=== PATIENT | male | born 1970 | race Caucasian/White ===

== ENCOUNTER 2017-12-08 12:08 | Day surgery (SDC) | payer OTHER | END 2017-12-08 16:30 | disposition home or self-care (01) | LOC: JASU-SURG 12:08 | PROC: 0TF3XZZ Fragmentation in Right Kidney Pelvis, External Approach (ICD-10-PCS; principal; 2017-12-08) | DX: N20.0 Calculus of kidney (principal) ==

== ENCOUNTER 2018-11-03 10:11 | Emergency (ER) | payer OTHER ==
[2018-11-03 10:30] VITALS: TEMP 98.2; BMI 36.6
--- NOTE | 2018-11-03 12:31 | PDOC ---
History of Present Illness - General Chief Complaint: Pain Stated Complaint: Swelling to penis Time Seen by Provider: 11/03/18 11:08 History Source: Patient, Spouse ( present at bedside), Old Records Exam Limitations: No Limitations - History of Present Illness Initial Comments: HPI: 48 y/o male presenting to [facility] ER complaining of growth to penis since Friday. States the area is not painful but warm to the touch with generalized itching. No tenderness to palpation, dysuria, increased urinary frequency, hematuria, or penile discharge. Denies h/o of similar symptoms in the past. Urologist: Dr. Barrientos Social Hx: - Pt states he is in a monogamous sexual relationship with his . One partner in the past six months. - Denies h/o of STD Medical Hx: - HTN - BPH Past History - Past Medical History Allergies/Adverse Reactions: Allergies Allergy/AdvReac Type Severity Reaction Status Date / Time No Known Drug Allergies Allergy Verified 11/03/18 10:25 Home Medications: Ambulatory Orders Amlodipine Besylate 10 mg PO DAILY 12/05/17 Labetalol HCl [Normodyne -] 100 mg PO BID 12/05/17 Clotrimazole [Antifungal] 14 gm TP BID #1 cream..g. 11/03/18 Disorders: Yes (BPH) HTN: Yes - Surgical History Abdominal Surgery: Yes (ABSCESS) Appendectomy: Yes Neurologic Surgery: Yes (LAMINECTOMY) - Immunization History Td Vaccination: Yes Immunization Up to Date: No - Suicide/Smoking/Psychosocial Hx Smoking Status: No Smoking History: Never smoked Have you smoked in the past 12 months: No Number of Cigarettes Smoked Daily: 0 Hx Alcohol Use: Yes (SOCIALLY) Drug/Substance Use Hx: No Substance Use Type: Alcohol Hx Substance Use Treatment: No Review of Systems - Review of Systems Able to Perform ROS?: Yes Comments:: In addition to that documented in the HPI above, the additional ROS was obtained : Constitutional: Denies fevers or chills today ENMT: Denies sore throat CV: Denies chest pain Resp: Denies SOB GI: Denies vomiting or diarrhea : Per HPI *Physical Exam - Vital Signs Last Vital Signs Temp Pulse Resp BP Pulse Ox 98.2 F 75 18 180/110 H 99 11/03/18 10:27 11/03/18 10:27 11/03/18 10:27 11/03/18 10:27 11/03/18 10:27 - Physical Exam Comments: Constitutional: Well-developed, well-nourished adult male in no acute distress or obvious discomfort. Found semi-fowlers on hospital bed. Alert and oriented x4. Answered all questions appropriately and completely. Speech was non-labored , non-pressured. Head: Normocephalic. No obvious external signs of trauma. Cardiovascular / Chest: Regular rate and regular rhythm. No murmur, rubs, clicks, or gallops. Peripheral pulses: radial pulses full. Respiratory: Breathing unlabored. Equal chest rise and fall. Clear to auscultation bilaterally. No stridor, no wheezing, no rhonchi. Gastrointestinal: abdomen is soft, non-tender, non-distended. No suprapubic tenderness. Neuro: Alert and oriented. Moving all four extremities spontaneously. Skin: Warm, dry, and intact. Psych: Affect: appropriate. Mood: normal. MALE GENITALIA: Genital exam revealed normally developed male genitalia. Uncircumcised penis. White plaque lesions surrounding gland with small amount of localized edema at 3 oclock position. No scrotal mass or tenderness, no hernias or inguinal lymphadenopathy. No perineal or perianal abnormalities are seen. No genital lesions or urethral discharge. RN chaperoned exam. Moderate Sedation - Procedure Monitoring Vital Signs: Procedure Monitoring Vital Signs Temperature 98.2 F 11/03/18 10:27 Pulse Rate 75 11/03/18 10:27 Respiratory Rate 18 11/03/18 10:27 Blood Pressure 180/110 H 11/03/18 10:27 O2 Sat by Pulse Oximetry (%) 99 11/03/18 10:27 Medical Decision Making - Medical Decision Making *Reviewed vital signs, nursing notes, and prior visit documentation (if available). 48 y/o male with penile lesion x2 days. Suspect balanitis versus candidal infection. Will prescribe clotrimazole. Low suspicion for syphilis chancre. Ordered RPR, HIV, GC/C/Trich, UA, and urine culture. RPR nonreactive. HIV negative. UA unremarkable for pyuria, nitrites, or leukocyte esterase. Low suspicion for cystitis. Urine culture pending. Hypertensive at triage with 2+ protein in urine. Consistent with HTN history. Will have pt f/u with PMD. Prescribed clotrimazole for suspected candidal lesions. Call back placed for urine culture and urine amplifications. *DC/Admit/Observation/Transfer Diagnosis at time of Disposition: Candidiasis of penis Hypertension Qualifiers: Hypertension type: unspecified Qualified Code(s): I10 - Essential (primary) hypertension - Discharge Dispostion Disposition: HOME Condition at time of disposition: Good Decision to Admit order: No - Prescriptions Prescriptions: Clotrimazole [Antifungal] 14 gm TP BID #1 cream..g. - Referrals Schedule a call back: Urine Amp Referrals: Jossue Stinson MD [Primary Care Provider] - - Patient Instructions Additional Instructions: Hoy te vieron por hinchazn y malestar alrededor de la punta de tu pene. [place] es probable debido a marshall infeccin por hongos local. Rea anlisis de rosa fue negativo. La prueba de orina inicial fue negativa. La prueba final kaycee aprox. 2 amaro para el resultado. El hospital te llamar si es positivo. He enviado marshall receta a rea farmacia para un medicamento antimictico. Kaycee areli se indica en el paquete. Tu presin arterial se elev mientras estabas aqu. [place] probablemente no est relacionado con donnell sntomas. Debe hacer un seguimiento con rea mdico de atencin primaria dentro de los prximos 3 a 4 amaro sobre mayte hallazgo. Tendr que llamar para hacer marshall audrey. El nmero est incluido en mayte paquete. Marshall copia de los resultados de hoy se adjunta a mayte paquete. Llvelo a la audrey para que rea mdico pueda revisarlos. Vaya al departamento de emergencias ms cercano si rea afeccin empeora o si mayda que necesita marshall evaluacin de emergencia adicional. You were seen today for swelling and discomfort around the tip of your penis. This is likely because of a local fungal infection. Your blood work was negative. The initial urine test was negative. The final test will take approx. 2 days to result. The hospital will call you if it is positive. I have sent a prescription to your pharmacy for an antifungal medication. Take as directed on the package. Your blood pressure was elevated while you were here. This is not likely related to your symptoms. You need to follow up with your primary care doctor within the next 3-4 days about this finding. You will need to call to make an appointment. The number is included in this packet. A copy of todays results are attached to this packet. Take it to the appointment so your doctor can review them. Go to the nearest emergency department if your condition worsens or you feel like you need additional emergency evaluation. Print Language: SPA - Post Discharge Activity Forms/Work/School Notes: Back to Work
--- NOTE | 2018-11-03 12:33 | PDOC ---
Attending Attestation - Resident Resident Name: Lowell Garcia - ED Attending Attestation I have performed the following: I have examined & evaluated the patient, The case was reviewed & discussed with the resident, I agree w/resident's findings & plan, Exceptions are as noted - HPI HPI: 11/03/18 12:39 48 M with h/o HTN presenting to ED with irritation to his penis. Pt first noticed it 2 days ago. He also notes whitish substance accumulating under his foreskin. Denies any dysuria. Is sexually active with his only. No h/o STDs. Pt denies F/C currently. - Physicial Exam PE: 11/03/18 12:58 "GENERAL: Awake, alert, and fully oriented, in no acute distress. HEAD: No signs of trauma EYES: PERRLA, EOMI, sclera anicteric, conjunctiva clear ENT: Auricles normal inspection, hearing grossly normal, nares patent, oropharynx clear without exudates. Moist mucosa NECK: Nontender, no stepoffs, Normal ROM, supple, no lymphadenopathy, JVD, or masses LUNGS: Breath sounds equal, clear to auscultation bilaterally. No wheezes, and no crackles HEART: Regular rate and rhythm, normal S1 and S2, no murmurs, rubs or gallops ABDOMEN: Soft, nontender, normoactive bowel sounds. No guarding, no rebound. No masses EXTREMITIES: Normal range of motion, no edema. No clubbing or cyanosis. No cords, erythema, or tenderness NEUROLOGICAL: Cranial nerves II through XII intact. 5/5 strength and sensation in all extremities, Normal speech, normal gait, normal cerebellar function SKIN: Warm, Dry, normal turgor, no rashes or lesions noted. : uncircumcised penis, + edema and erythema to foreskin and glans, + curd- like white plaque - Medical Decision Making 11/03/18 12:59 48 M with likely candidal balanitis/balanoposthitis. Will tx with topical antifungal. Pt interested in STD and HIV testing. - GC/CT, HIV tests Pt noted to be hypertensive in ED. Has h/o HTN. Denies any CP/SOB/ESQUIVEL. Pt is well appearing, with normal vitals. Clinically stable for DC at this time. I discussed the physical exam findings, ancillary test results and final diagnoses with the patient. I answered all of the patient's questions. The patient was satisfied with the care received and felt comfortable with the discharge plan and treatment plan. The patient agrees to follow up with the primary care physician within 24-72 hours.
[2018-11-03 12:47] LABS: URINE APPEARANCE CLEAR; URINE BILIRUBIN NEGATIVE (<2.0 mg/dL); URINE COLOR LTYELLOW; URINE GLUCOSE (UA) NEGATIVE (NEGATIVE); URINE KETONE NEGATIVE (NEGATIVE); URINE LEUK ESTERASE NEGATIVE (NEGATIVE); URINE NITRITE NEGATIVE (NEGATIVE); URINE PROTEIN 2+ (NEGATIVE); URINE UROBILINOGEN NEGATIVE mg/dL (0.2-1.0)
[2018-11-03 13:12] LABS: EPI CELLS RARE /HPF (FEW); URINE MUCUS RARE
[2018-11-03 13:30] VITALS: BP 155/98
[2018-11-03 13:32] VITALS: PULSE 86
== END 2018-11-03 13:53 | disposition home or self-care (01) ==
LOC: JER 10:11
DX: B37.49 Other urogenital candidiasis (principal); I10 Essential (primary) hypertension; N40.0 Benign prostatic hyperplasia without lower urinary tract symptoms
CPT/HCPCS: 36415; 81003; 81015; 86593; 87086; 87389; 87491; 87591; 87661; 99283-25

== ENCOUNTER 2019-07-21 11:20 | Day surgery (SDC) | payer OTHER ==
[2019-07-19 10:12] VITALS: BMI 34.9
[2019-07-21] MEDS ORDERED: PROPOFOL 20 ML ONE ×4 (13:36→13:56)
[2019-07-21 15:15] VITALS: TEMP 98.2
[2019-07-21 15:21] VITALS: BP 136/72; PULSE 72
--- NOTE | 2019-07-23 18:29 | PATH ---
Surgical Pathology Report Patient Name: BARRY PRIEST [facility]. Rec. #: [id number] /Age/Gender: 1970 (Age: 49) / M Account: [id number] Location: [facility] Taken: 07/21/2019 Received: 07/21/2019 Reported: 07/23/2019 Physicians: Angie Guzman M.D. Specimen(s) Received A: POLYP ASCENDING COLON X2 B: POLYP TRANSVERSE COLON C: POLYP SIGMOID COLON Clinical History GI bleed, abdominal pain Postoperative diagnosis: Hemorrhoids, diverticulosis, polyps Final Diagnosis A. ASCENDING COLON POLYP X 2, POLYPECTOMY: TUBULAR ADENOMA, TWO FRAGMENTS. B. TRANSVERSE COLON POLYP, POLYPECTOMY: TUBULAR ADENOMA. C. SIGMOID COLON POLYP, BIOPSY: COLONIC MUCOSA WITH FOCAL SURFACE HYPERPLASTIC CHANGE. Electronically Signed Ezio Milner M.D. Gross Description A. Received in formalin, labeled "polyps ascending colon x 2" are 2 peres, irregular portions of soft tissue averaging 0.4 cm. in greatest dimension. The specimens are submitted in toto in one cassette. B. Received in formalin, labeled "polyp transverse colon" is a peres, irregular portion of soft tissue measuring 0.4 cm. in greatest dimension. The specimen is submitted in toto in one cassette. C. Received in formalin, labeled "polyp sigmoid colon" is a peres, irregular portion of soft tissue measuring 0.5 cm. in greatest dimension. The specimen is submitted in toto in one cassette. 07/22/201907/22/2019
== END 2019-07-21 15:30 | disposition home or self-care (01) ==
LOC: FASU-ENDO 11:20
PROVIDERS: ATTEND Internal Medicine Gastroenterology
PROC: 0DBL8ZX Excision of Transverse Colon, Via Natural or Artificial Opening Endoscopic, Diagnostic (ICD-10-PCS; 2019-07-21)
PROC: 0DBN8ZX Excision of Sigmoid Colon, Via Natural or Artificial Opening Endoscopic, Diagnostic (ICD-10-PCS; 2019-07-21)
PROC: 0DBK8ZX Excision of Ascending Colon, Via Natural or Artificial Opening Endoscopic, Diagnostic (ICD-10-PCS; principal; 2019-07-21 14:06)
DX: K57.30 Diverticulosis of large intestine without perforation or abscess without bleeding (principal); D12.2 Benign neoplasm of ascending colon; D12.3 Benign neoplasm of transverse colon; D12.5 Benign neoplasm of sigmoid colon; K64.8 Other hemorrhoids; I10 Essential (primary) hypertension
CPT/HCPCS: 88305-TC

== ENCOUNTER 2019-11-12 12:44 | Emergency (ER) | payer OTHER ==
--- NOTE | 2019-11-12 12:48 | PDOC ---
Rapid Medical Evaluation Time Seen by Provider: 11/12/19 12:46 Medical Evaluation: Allergies Allergy/AdvReac Type Severity Reaction Status Date / Time No Known Drug Allergies Allergy Verified 07/21/19 12:03 11/12/19 12:46, Pt c/o: rt kidney pain with urgency frequency, hx of renal colic, has urologist, he also mentions runny nose Pt on breif exam: rt cva tenderness Pt ordered for: none, covid cleared Pt to proceed to triage
[2019-11-12 13:29] VITALS: TEMP 98.4; BMI 36.6
[2019-11-12] MEDS ORDERED: KETOROLAC TROMETHAMINE 30 MG/1 ML VIAL IM ONE (13:38)
[2019-11-12] MEDS ORDERED: KETOROLAC TROMETHAMINE 30 MG/1 ML VIAL ONE (13:49)
--- NOTE | 2019-11-12 14:07 | PDOC ---
History of Present Illness - General Chief Complaint: Pain, Acute Stated Complaint: FLANK PAIN Time Seen by Provider: 11/12/19 12:46 History Source: Patient Exam Limitations: Clinical Condition - History of Present Illness Initial Comments: 11/12/19 14:03 Patient with no significant past medical history present with complaint of 3-day history of bilateral flank pain radiating to posterior legs, runny nose and nasal congestion. Patient also reported burning with urination and urinary urgency with frequency since yesterday. Denies fevers, chills, shortness of breath, chest pain, palpitation, weakness, nausea or vomiting. Patient did not take anything for symptoms. Denies any other symptoms Is this a multiple visit Asthma Patient?: No Timing/Duration: other Past History - Past Medical History Allergies/Adverse Reactions: Allergies Allergy/AdvReac Type Severity Reaction Status Date / Time No Known Drug Allergies Allergy Verified 11/12/19 13:04 Home Medications: Ambulatory Orders Labetalol HCl [Normodyne -] 100 mg PO BID 12/05/17 Irbesartan 300 mg PO DAILY 07/19/19 Azithromycin [Zithromax 250mg Tablets -] 250 mg PO UTDICT #6 tab 11/12/19 Cephalexin Monohydrate [Keflex -] 500 mg PO BID 7 Days #14 capsule 11/12/19 Anemia: No Asthma: No Cancer: No Cardiac Disorders: No CVA: No COPD: No CHF: No Dementia: No Diabetes: No GI Disorders: Yes (RECENTLY PASSED BLOOD IN STOOL) Disorders: Yes (BPH,KIDNEY STONES) HTN: Yes Hypercholesterolemia: No Liver Disease: No Seizures: No Thyroid Disease: No - Surgical History Abdominal Surgery: Yes (ABSCESS) Appendectomy: Yes Cardiac Surgery: No Cholecystectomy: No Lung Surgery: No Neurologic Surgery: Yes (LAMINECTOMY) Orthopedic Surgery: Yes (LAMINECTOMY?? BACK SURGERY IN [place]) - Immunization History Td Vaccination: Yes Immunization Up to Date: No - Psycho Social/Smoking Cessation Hx Smoking Status: No Smoking History: Never smoked Have you smoked in the past 12 months: No Number of Cigarettes Smoked Daily: 0 Hx Alcohol Use: No Drug/Substance Use Hx: No Substance Use Type: Alcohol Hx Substance Use Treatment: No Review of Systems - Review of Systems Able to Perform ROS?: Yes Is the patient limited [place] proficient: No Constitutional: No: Chills, Fever, Malaise HEENTM: Yes: Symptoms Reported, See HPI, Nose Congestion. No: Eye Pain, Blurred Vision, Tearing, Recent change in vision, Double Vision, Cataracts, Ear Pain, Ocular Prothesis, Ear Discharge, Nose Pain, Tinnitus, Nose Bleeding, Hearing Loss, Throat Pain, Throat Swelling, Mouth Pain, Dental Problems, Difficulty Swallowing, Mouth Swelling, Other Respiratory: No: Symptoms reported, See HPI, Cough, Orthopnea, Shortness of Breath, SOB with Exertion, SOB at Rest, Stridor, Wheezing, Productive cough, Hemoptysis, Other Cardiac (ROS): No: Symptoms Reported, See HPI, Chest Pain, Edema, Irregular Heart Rate, Lightheadedness, Palpitations, Syncope, Chest Tightness, Other ABD/GI: No: Symptoms Reported, See HPI, Abdominal Distended, Constipated, Diarrhea, Nausea, Poor Appetite, Vomiting, Indigestion, Abdominal cramping : Yes: Symptoms Reported, See HPI, Burning, Dysuria, Frequency, Flank Pain, Urgency. No: Discharge, Hematuria, Incontinence, Testicular Mass, Testicular Swelling, Lesions, Testicular Pain Musculoskeletal: Yes: Symptoms Reported, See HPI, Back Pain Integumentary: No: Symptoms Reported Neurological: No: Symptoms reported, Headache, Weakness, Dizziness All Other Systems: Reviewed and Negative *Physical Exam - Vital Signs Last Vital Signs Temp Pulse Resp BP Pulse Ox 98.4 F 92 H 16 160/107 H 98 11/12/19 13:02 11/12/19 13:02 11/12/19 13:02 11/12/19 13:02 11/12/19 13:02 - Physical Exam 11/12/19 14:09 GENERAL: Well developed, well nourished. Awake and alert. No acute distress. HEENT: Normocephalic, atraumatic. PERRLA, EOMI. No conjunctival pallor. Sclera are non-icteric. Moist mucous membranes. Oropharynx is clear. NECK: Supple. Full ROM. CARDIOVASCULAR: Regular rate and rhythm. No murmurs, rubs, or gallops. Distal pulses are 2+ and symmetric. PULMONARY: No evidence of respiratory distress. Lungs clear to auscultation bilaterally. No wheezing, rales or rhonchi. ABDOMINAL: Soft. Mild bilateral subjective flank tenderness . Non-distended. No rebound or guarding. No organomegaly. Normoactive bowel sounds. MUSCULOSKELETAL Normal range of motion at all joints. Mild tenderness to lateral paravertebral muscle of lumbar spine of L2-L4. No midline tenderness. No CVA tenderness SKIN: Warm and dry. Normal capillary refill. No cyanosis NEUROLOGICAL: Alert, awake, appropriate. Gait is normal without ataxia. PSYCHIATRIC: Cooperative. Good eye contact. Appropriate mood General Appearance: Yes: Nourished, Appropriately Dressed. No: Apparent Distress ED Treatment Course - LABORATORY CBC & Chemistry Diagram: 11/12/19 13:50 - RADIOLOGY Radiology Studies Ordered: Category Date Time Status SPIRAL- RENAL-STONE CT [CT] Stat CT Scan 11/12/19 13:38 Ordered - Medications Given in the ED: ED Medications Discontinued Medications Generic Name Dose Route Start Last Admin Trade Name [place] PRN Reason Stop Dose Admin Ketorolac Tromethamine 30 mg 11/12/19 13:38 11/12/19 13:48 Toradol Injection - IM 11/12/19 13:39 30 mg ONCE ONE Administration Medical Decision Making - Medical Decision Making 11/12/19 14:07 Patient with no significant past medical history present with complaint of 3-day history of bilateral flank pain radiating to posterior legs, runny nose and nasal congestion. Patient also reported burning with urination and urinary urgency with frequency since yesterday. Denies fevers, chills, shortness of breath, chest pain, palpitation, weakness, nausea or vomiting. Patient did not take anything for symptoms. Denies any other symptoms Clinical exam unremarkable except subjective bilateral flank pain. No abdominal tenderness. Patient afebrile in no acute distress. Normal lung exam. Patient symptoms likely cystitis with rhinitis versus less likely kidney stone with rhinitis. CBC and chemistry lab ordered. UA and urine culture lab ordered to evaluate for cystitis. Spiral CT ordered to rule out kidney stone. Toradol 30 mg IM ordered for pain. Treat based on lab and imaging results 11/12/19 15:56 CBC and UA unremarkable. CT shows bilateral groundglass infiltrate consistent with covid pneumonitis. Patient clinically stable for outpatient management on Z-Simon for pneumonia. Patient walked around the ED for 5 minutes without desating .oxygen saturation persist of 98%. Patient stable for discharge with strict follow-up instructions Discharge - Discharge Information Problems reviewed: Yes Clinical Impression/Diagnosis: COVID-19 virus infection, Pneumonia due to 2019 novel coronavirus Condition: Stable Disposition: HOME - Admission No - Additional Discharge Information Prescriptions: Cephalexin Monohydrate [Keflex -] 500 mg PO BID 7 Days #14 capsule Azithromycin [Zithromax 250mg Tablets -] 250 mg PO UTDICT #6 tab - Follow up/Referral Referrals: Jossue Stinson MD [Primary Care Provider] - - Patient Discharge Instructions Patient Printed Discharge Instructions: [facility]-Coronavirus Instructions, R- [facility] COVID-19 Isolation Protocol Additional Instructions: Your CAT scan shows pneumonia consistent with coronavirus. Take prescribed medication as prescribed as discussed. Increase fluid intake. Self-conscious of for the next 2 weeks and no public guardian until improved symptoms for at least 72 hours. Come back to emergency room if shortness of breath with difficulty breathing, excessive weakness - Post Discharge Activity Work/Back to School Note: Back to Work
[2019-11-12 14:46] LABS: BASO % 0.4 % (0-2.0); EOS % 0.3 % (0-4.5); HEMATOCRIT 44.9 % (35.4-49); LYMPH % 27.9 % (8-40); MCH 29.8 pg (25.7-33.7); MCHC 33.5 g/dl (32.0-35.9); MEAN CELL VOLUME 88.9 fl (80-96); MEAN PLT VOLUME 8.2 fl (7.5-11.1); MONO % 7.6 % (3.8-10.2); NEUT % 63.8 % (42.8-82.8); PLATELET COUNT 204 K/MM3 (134-434); RBC 5.05 M/mm3 (4.00-5.60)
[2019-11-12 14:48] LABS: URINE APPEARANCE CLEAR; URINE BILIRUBIN NEGATIVE (NEGATIVE); URINE COLOR YELLOW; URINE GLUCOSE (UA) NEGATIVE (NEGATIVE); URINE KETONE NEGATIVE (NEGATIVE); URINE LEUK ESTERASE NEGATIVE (NEGATIVE); URINE NITRITE NEGATIVE (NEGATIVE); URINE PROTEIN NEGATIVE (NEGATIVE); URINE UROBILINOGEN 0.2 mg/dL (0.2-1.0)
[2019-11-12 15:51] VITALS: BP 145/89; PULSE 75
== END 2019-11-12 16:03 | disposition home or self-care (01) ==
LOC: JER 12:44
DX: J12.89 Other viral pneumonia (principal); B97.29 Other coronavirus as the cause of diseases classified elsewhere
CPT/HCPCS: 36415; 74176-TC; 81003; 85025; 87086; 99284-25

== ENCOUNTER 2020-05-30 05:28 | Emergency (ER) | payer OTHER ==
--- OUTSIDE RECORDS SUMMARY | 2020-05-30 05:44 | XMS ---
:1970 Author Organization [facility] Care Team Providers Name Role Phone Chumaceiro Unavailable Unavailable Chumaceiro Unavailable Unavailable Chumaceiro Unavailable Unavailable Chumaceiro Unavailable Unavailable Chumaceiro Unavailable Unavailable Chumaceiro Unavailable Unavailable Chumaceiro Unavailable Unavailable Chumaceiro Unavailable Unavailable ED STAFF PHYSICIAN Unavailable Unavailable ED STAFF PHYSICIAN Unavailable Unavailable ED STAFF PHYSICIAN Unavailable Unavailable Re-disclosure Warning The records that you are about to access may contain information from federally- assisted alcohol or drug abuse programs. If such information is present, then the following federally mandated warning applies: This information has been disclosed to you from records protected by federal confidentiality rules (42 CFR part 2). The federal rules prohibit you from making any further disclosure of this information unless further disclosure is expressly permitted by the written consent of the person to whom it pertains or as otherwise permitted by 42 CFR part 2. A general authorization for the release of medical or other information is NOT sufficient for this purpose. The Federal rules restrict any use of the information to criminally investigate or prosecute any alcohol or drug abuse patient.The records that you are about to access may contain highly sensitive health information, the redisclosure of which is protected by Article 27-F of the [facility] Public Health law. If you continue you may haveaccess to information: Regarding HIV / AIDS; Provided by facilities licensed or operated by the [facility] Office of Mental Health; or Provided by the [facility] Office for People With Developmental Disabilities. If such information is present, then the following [facility] mandated warning applies: This information has been disclosed to you from confidential records which are protected by state law. State law prohibits you from making any further disclosure of this information without the specific written consent of the person to whom it pertains, or as otherwise permitted by law. Any unauthorized further disclosure in violation of state law may result in a fine or penitentiary sentence or both. A general authorization for the release of medical or other information is NOT sufficient authorization for further disclosure. Encounters Encounter Providers Location Date Indications Data Source(s ) Attender: Jossue 03/06/2020 [facility] ([facility] 12:00:00 AM Medical, PC) EDT Office Emergency Attender: ED STAFF H 11/29/2019 01:48:00 PM [facility] PHYSICIANAttender: STAFF ED EDT - 11/29/2019 [facility] Center STAFF PHYSICIANAdmitter: ED 06:30:00 PM EDT STAFF PHYSICIAN Patient discharged. Emergency Attender: CED ED STAFF H 06/21/2019 04:20:00 PM [facility] PHYSICIANAttender: STAFF ED EST - 06/21/2019 [facility] Center STAFF PHYSICIANAdmitter: CED 10:33:00 PM EST ED STAFF PHYSICIAN Patient discharged. Medications Medication Brand Start Product Dose Route Administrative Pharmacy [facility] Indications Reaction Description Data Name Date Form Instructions Instructions Source(s) Simethicone SIMETH 07/26/ TABLET, 60 complet SIM ETHICONE MED[facility] (St 80 MG ICONE: 2019 CHEWABLE ed [facility] Chewable 837570 12:00: Medical , Tablet 00 AM PC) SIMETHICONE EST :[id number] Amlodipine AMLODI 07/12/ complet AMLODIP INE MED[facility] (St 5 MG Oral PINE:1 2018 ed [facility] Tablet 03631 12:00: Medical, AMLODIPINE: 00 AM PC) [id number] EST SUPREP 07/12/ LIQUID 1 complet SUPREP MARIANA L MED[facility] (St BOWEL PREP 2019 ed PREP KIT [facility] KIT:[id number] 12:00: Medica l, 00 AM ) EST pantoprazol PROTON 07/12/ DELAYED 30 complet PRO TONIX MED[facility] (St e 40 MG IX:284 2019 RELEASE ed [facility] Delayed 400 12:00: TABLET Medical, Release 00 AM PC) Oral Tablet EST [Protonix] PROTONIX:28 4400 irbesartan IRBESA 07/12/ complet IRBESAR [place] (St 300 MG Oral RTAN:2 2019 ed [facility] Tablet 81696 12:00: Medical, IRBESARTAN: 00 AM PC) [id number] EST Insurance Providers Payer name Policy type Policy ID Covered Covered green party's Policy P tash / Coverage green party ID relationship to [employer] type [employer] HMO [id number] SP [id number] HIP HMO [id number] SP [id number] ESSENTIAL [id number] 1 [id number] PLAN - [facility] [id number] 1 [id number] HIP HIP O [id number] 01 [id number] O HIP O [id number] 01 [id number] [facility] [id number] (O) Problems, Conditions, and Diagnoses Code Display Name Description Problem Type Effective Data Dates Source(s) K21.9 Gastro-esophageal GASTRO-ESOPHAGEAL Problem 03/06/2020 MED[facility] (St reflux disease REFLUX DISEASE 12:00:00 AM Al[facility] saunders without esophagitis WITHOUT ESOPHAGITIS [facility], ) J32.4 Chronic pansinusitis CHRONIC PANSINUSITIS Problem 12/27 MED[facility] (St 12:00:00 AM [facility], ) R00.2 Palpitations PALPITATIONS Problem 12/13/2019 MED[facility] (St 12:00:00 AM [facility], ) R07.89 Other chest pain OTHER CHEST PAIN Problem 12/09/2019 ME DGEN (St 12:00:00 AM [facility], ) R53.83 Other fatigue OTHER FATIGUE Problem 12/06/2019 MED[facility] ( St 12:00:00 AM [facility], ) J01.90 Acute sinusitis, ACUTE SINUSITIS, Problem 11/22/2019 ME DGEN (St unspecified UNSPECIFIED 12:00:00 AM [facility], ) Z86.010 Personal history of PERSONAL HISTORY OF Problem 019 MED[facility] (St colonic polyps COLONIC POLYPS 12:00:00 AM [facility]) R10.9 Unspecified UNSPECIFIED Problem 07/26/2019 MED[facility] (St abdominal pain ABDOMINAL PAIN 12:00:00 AM [facility], ) K30 Functional dyspepsia FUNCTIONAL DYSPEPSIA Problem 07/12 MED[facility] (St 12:00:00 AM [facility]) R19.4 Change in bowel CHANGE IN BOWEL Problem 07/12/2019 MEDG EN (St habit HABIT 12:00:00 AM [facility]) R05 Cough COUGH Diagnosis 11/29/2019 [facility] 01:48:00 PM [facility] R06.02 Shortness of breath SHORTNESS OF BREATH Diagnosis 020 [facility] 01:48:00 PM [facility] I10 Essential (primary) ESSENTIAL (PRIMARY) Diagnosis 019 [facility] hypertension HYPERTENSION 04:20:00 PM [facility] K92.2 Gastrointestinal GASTROINTESTINAL Diagnosis 06/21/2019 Sa int hemorrhage, HEMORRHAGE, 04:20:00 PM [facility] unspecified UNSPECIFIED [facility] K92.1 Melena MELENA Diagnosis 06/21/2019 [facility] 04:20:00 PM [facility] Surgeries/Procedures Procedure Description Date Indications Data Source(s) Documentation of current 03/06/2020 MED [facility] ([facility] medications (procedure) 12:00:00 AM EDEva MINERVA bryan) OFFICE OUTPATIENT VISIT 03/06/2020 [facility] EN ([facility] 15 MINUTES 12:00:00 AM [facility] ) Documentation of current 12/28/2019 [facility] ([facility] medications (procedure) 12:00:00 AM EDT MINERVA bryan) Documentation of current 12/28/2019 [facility] ([facility] medications (procedure) 12:00:00 AM EDMINERVA Palm) Documentation of current 12/28/2019 [facility] ([facility] medications (procedure) 12:00:00 AM ANGELITA MINERVA bryan) Documentation of current 12/28/2019 [facility] ([facility] medications (procedure) 12:00:00 AM EDT randi, PC) PHYSICIAN TELEPHONE 12/28/2019 [facility] ( [facility] EVALUATION 5-10 MIN 12:00:00 AM EDT Medic josselyn, PC) Documentation of current 12/13/2019 [facility] ([facility] medications (procedure) 12:00:00 AM EDT randi, PC) Documentation of current 12/13/2019 [facility] ([facility] medications (procedure) 12:00:00 AM EDT randi, PC) Documentation of current 12/13/2019 [facility] ([facility] medications (procedure) 12:00:00 AM EDT randi, PC) Documentation of current 12/13/2019 [facility] ([facility] medications (procedure) 12:00:00 AM EDT randi, PC) Documentation of current 12/13/2019 [facility] ([facility] medications (procedure) 12:00:00 AM EDT randi, PC) Documentation of current 12/13/2019 [facility] ([facility] medications (procedure) 12:00:00 AM EDT randi, PC) PHYSICIAN TELEPHONE 12/13/2019 [facility] ( [facility] EVALUATION 5-10 MIN 12:00:00 AM EDT Medic josselyn, PC) Documentation of current 12/10/2019 [facility] ([facility] medications (procedure) 12:00:00 AM EDT randi, PC) Documentation of current 12/10/2019 MED [facility] ([facility] medications (procedure) 12:00:00 AM EDT randi, PC) Documentation of current 12/10/2019 [facility] ([facility] medications (procedure) 12:00:00 AM EDT randi, PC) Documentation of current 12/10/2019 [facility] ([facility] medications (procedure) 12:00:00 AM EDT randi, PC) Documentation of current 12/10/2019 [facility] ([facility] medications (procedure) 12:00:00 AM EDT randi, PC) Documentation of current 12/10/2019 [facility] ([facility] medications (procedure) 12:00:00 AM EDT randi, PC) PHYSICIAN TELEPHONE 12/10/2019 [facility] ( [facility] EVALUATION 5-10 MIN 12:00:00 AM EDT Medic josselyn, PC) Documentation of current 12/09/2019 [facility] ([facility] medications (procedure) 12:00:00 AM EDT randi, PC) Documentation of current 12/09/2019 MED [facility] ([facility] medications (procedure) 12:00:00 AM EDT M randi, PC) Documentation of current 12/09/2019 [facility] ([facility] medications (procedure) 12:00:00 AM EDT randi, PC) Documentation of current 12/09/2019 MED [facility] ([facility] medications (procedure) 12:00:00 AM EDT randi, PC) Documentation of current 12/09/2019 MED [facility] ([facility] medications (procedure) 12:00:00 AM EDT randi, PC) Documentation of current 12/09/2019 MED [facility] ([facility] medications (procedure) 12:00:00 AM EDT randi, PC) PHYSICIAN TELEPHONE 12/09/2019 [facility] ( [facility] EVALUATION 5-10 MIN 12:00:00 AM EDT Medic josselyn, PC) Documentation of current 12/06/2019 MED [facility] ([facility] medications (procedure) 12:00:00 AM EDT randi, PC) Documentation of current 12/06/2019 MED [facility] ([facility] medications (procedure) 12:00:00 AM EDT randi, PC) Documentation of current 12/06/2019 MED [facility] ([facility] medications (procedure) 12:00:00 AM EDT randi, PC) Documentation of current 12/06/2019 MED [facility] ([facility] medications (procedure) 12:00:00 AM EDT randi, PC) PHYSICIAN TELEPHONE 12/06/2019 [facility] ( [facility] EVALUATION 5-10 MIN 12:00:00 AM EDT Medic al, PC) Documentation of current 11/22/2019 MED [facility] ([facility] medications (procedure) 12:00:00 AM EDT randi, PC) Documentation of current 11/22/2019 MED [facility] ([facility] medications (procedure) 12:00:00 AM EDT randi, PC) PHYSICIAN TELEPHONE 11/22/2019 [facility] ( [facility] EVALUATION 5-10 MIN 12:00:00 AM EDT Medic josselyn, PC) Documentation of current 07/26/2019 MED [facility] ([facility] medications (procedure) 12:00:00 AM MINERVA Chandler) Documentation of current 07/12/2019 MED [facility] ([facility] medications (procedure) 12:00:00 AM MINERVA Chandler) Results ID Date Data Source [id number] 01/13/2020 01:35:00 PM EDT [facility] Name Value Range Interpretation Code Description Data Aykaa rce(s) Supporting Document(s ) SARS-COV-2 [facility] PCR This lab was ordered by Covid 19 [facility] and reported by [facility]. ID Date Data Source [id number] 11/29/2019 12:00:00 AM EDT [facility] Name Value Range Interpretation Code Description Data Ayaka rce(s) Supporting Document(s ) 2019-nCoV [facility] RNA XXX REYNOLD+probe- Imp This lab was ordered by [facility] and reported by [facility]. ID Date Data Source Urinalysis.[id number] 06/21/2019 08:00:00 PM [facility] 0 Name Value Range Interpretation Description Data Sup porting Code Source(s) Document(s ) Color of Urine YELLOW <content [facility] styleCode="Clau Nory d">Color, Medical Urine Center </content>YELL OW <content styleCode="Arelis lics"> (YELLOW )</content> Glucose NEGATIVE <content [facility] [Mass/volume] styleCode="Clau Nory in Urine by d">Urine Medical Test strip Glucose Center </content>NEGA TIVE MG/DL<content styleCode="Arelis lics"> (NEGATIVE MG/DL)</conten t> Ketones NEGATIVE <content [facility] [Mass/volume] styleCode="Clau Nory in Urine by d">Urine Medical Test strip Ketone Center </content>NEGA TIVE MG/DL<content styleCode="Arelis lics"> (NEGATIVE MG/DL)</conten t> UNK CLEAR <content [facility] styleCode="Clau Nory d">Urine Medical Clarity Center </content>DENICE R <content styleCode="Arelis lics"> (CLEAR )</content> UNK NEGATIVE <content [facility] styleCode="Clau Nory d">Urine Medical Bilirubin Center </content>NEGA TIVE <content styleCode="Arelis lics"> (NEGATIVE )</content> pH of Urine by 4.5-8.0 <content [facility] Test strip styleCode="Clau Nory d">Urine pH Medical </content>5.5 Center <content styleCode="Arelis lics"> (4.5-8.0 )</content> Specific 1.015-1.02 <content [facility] gravity of 5 styleCode="Clau Wrights Urine by Test d">Urine Medical strip Specific Center [place] </content>1.01 5 <content styleCode="Arelis lics"> (1.015-1.025 )</content> Hemoglobin NEGATIVE <content [facility] [Presence] in styleCode="Clau Wrights Urine by Test d">Urine Blood Medical strip </content>NEGA Center TIVE <content styleCode="Arelis lics"> (NEGATIVE )</content> Protein NEGATIVE <content [facility] [Mass/volume] styleCode="Clau Wrights in Urine by d">Urine Medical Test strip Protein Center </content>NEGA TIVE MG/DL<content styleCode="Arelis lics"> (NEGATIVE MG/DL)</conten t> Nitrite NEGATIVE <content [facility] [Presence] in styleCode="Clau Cueto Urine by Test d">Urine Medical strip Nitrite Center </content>NEGA TIVE <content styleCode="Arelis lics"> (NEGATIVE )</content> Urobilinogen 0.2-1.0 <content [facility] [Units/volume] styleCode="Clau Wrights in Urine by d">Urine Medical Test strip Urobilinogen Center </content>0.2 MG/DL<content styleCode="Arelis lics"> (0.2-1.0 MG/DL)</conten t> Leukocyte NEGATIVE <content [facility] esterase styleCode="Clau Nory [Presence] in d">Urine Medical Urine by Test Leukocyte Center strip </content>NEGA TIVE <content styleCode="Arelis lics"> (NEGATIVE )</content> ID Date Data Source [facility].[id number] 06/21/2019 08:00:00 PM [facility] Name Value Range Interpretation Code Description Data Ayaka rce(s) Supporting Document(s ) UNK NEGATIVE <content [facility] styleCode="Bold" Medical Cente r >Guaiac, Occult Blood </content>POSITI VE <content styleCode="Itali cs"> (NEGATIVE )</content> ID Date Data Source Liver 06/21/2019 05:53:00 PM [facility] Profile.[id number] Name Value Range Interpretation Description Data Sup porting Code Source(s) Document(s ) Aspartate 17-59 <content [facility] aminotransferase styleCode="Bold"> Johann hs [Enzymatic Aspartate Medical activity/volume] Aminotransferase Center in Serum or Plasma (AST) </content>29 IU/L<content styleCode="Italic s"> (17-59 IU/L)</content> Alkaline 38-126 <content [facility] phosphatase styleCode="Bold"> Nory [Enzymatic Alkaline Medical activity/volume] Phosphatase (ALP) Cente r in Serum or Plasma </content>89 IU/L<content styleCode="Italic s"> (38-126 IU/L)</content> Alanine 7-50 <content [facility] aminotransferase styleCode="Bold"> Johann hs [Enzymatic Alanine Medical activity/volume] Aminotransferase Center in Serum or Plasma (ALT) </content>35 IU/L<content styleCode="Italic s"> (7-50 IU/L)</content> UNK 0.0-0.3 <content [facility] styleCode="Bold"> Nory Bilirubin, Direct Medical </content>< 0.2 Center MG/DL<content styleCode="Italic s"> (0.0-0.3 MG/DL)</content> Bilirubin.total 0.2-1.3 <content [facility] [Mass/volume] in styleCode="Bold"> Johann hs Serum or Plasma Bilirubin Total Medical </content>0.3 Center MG/DL<content styleCode="Italic s"> (0.2-1.3 MG/DL)</content> Albumin 3.5-5.0 <content [facility] [Mass/volume] in styleCode="Bold"> Johann hs Serum or Plasma Albumin Medical </content>4.8 Center G/DL<content styleCode="Italic s"> (3.5-5.0 G/DL)</content> ID Date Data Source HematologyRou.[id number] 06/21/2019 05:53:00 PM [facility] 0500 Name Value Range Interpretation Description Data Sup porting Code Source(s) Document(s ) Erythrocytes 4.4-5.9 <content [facility] [#/volume] in styleCode="Bold Nory Blood by ">Red Blood Medical Automated count Cell Count Center </content>4.72 MCUMM<content styleCode="Ital ics"> (4.4-5.9 MCUMM)</content > Leukocytes 4.4-11.0 <content [facility] [#/volume] in styleCode="Bold Nory Blood by ">White Blood Medical Automated count Cell Count Center </content>8.55 KCUMM<content styleCode="Ital ics"> (4.4-11.0 KCUMM)</content > Hemoglobin 13.5-17. <content [facility] [Mass/volume] in 5 styleCode="Bold Nory Blood ">Hemoglobin Medical </content>14.4 Center G/DL<content styleCode="Ital ics"> (13.5-17.5 G/DL)</content> Erythrocyte mean 80.0-100 <content [facility] corpuscular .0 styleCode="Bold Nory volume [Entitic ">Mean Medical volume] by Corpuscular Center Automated count Volume </content>87.5 FL<content styleCode="Ital ics"> (80.0-100.0 FL)</content> Erythrocyte mean 26.0-34. <content [facility] corpuscular 0 styleCode="Bold Nory hemoglobin ">Mean Medical [Entitic mass] Corposcular Center by Automated Hemoglobin count </content>30.5 PG<content styleCode="Ital ics"> (26.0-34.0 PG)</content> Hematocrit 41.0-53. <content Saint [Volume 0 styleCode="Bold Nory Fraction] of ">Hematocrit Medical Blood by </content>41.3 Center Automated count %<content styleCode="Ital ics"> (41.0-53.0 %)</content> Platelets 130-400 <content Saint [#/volume] in styleCode="Bold Nory Blood by ">Platelet Medical Automated count Count Center </content>223 KCUMM<content styleCode="Ital ics"> (130-400 KCUMM)</content > Erythrocyte 11.5-14. <content [facility] distribution 5 styleCode="Bold Nory width [Ratio] by ">Red Cell Medical Automated count Distribution Center Width </content>13.0 %<content styleCode="Ital ics"> (11.5-14.5 %)</content> Erythrocyte mean 32.0-37. <content [facility] corpuscular 0 styleCode="Bold Nory hemoglobin ">Mean Corpus. Medical concentration Hgb Center [Mass/volume] by Concentration Automated count (MCHC) </content>34.9 G/DL<content styleCode="Ital ics"> (32.0-37.0 G/DL)</content> UNK 0 <content Saint styleCode="Bold Nory ">Nucleated Red Medical Blood Cell Center </content>0.0 /100<content styleCode="Ital ics"> (0 /100)</content> UNK 0.0 <content Saint styleCode="Bold Nory ">Nucleated Red Medical Blood Cell Center Count </content>0.00 KCUMM<content styleCode="Ital ics"> (0.0 KCUMM)</content > Platelet mean 8.0-11.0 <content Saint volume [Entitic styleCode="Bold Nory volume] in Blood ">Mean Platelet Medical by Automated Volume Center count </content>9.7 FL<content styleCode="Ital ics"> (8.0-11.0 FL)</content> ID Date Data Source GFR(Creatinine).[id number] 06/21/2019 05:53:00 PM EST [facility] 0-0500 Name Value Range Interpretation Code Description Data Ayaka rce(s) Supporting Document(s ) UNK > 60 <content Saint Nory styleCode="Bold"> Medical Cent er EGFR </content>95 GFR<content styleCode="Italic s"> (> 60 GFR)</content> ID Date Data Source SULAIMAN.[id number] 06/21/2019 05:53:00 PM [facility] -0500 Name Value Range Interpretation Description Data Sup porting Code Source(s) Document(s ) UNK 30-110 <content [facility] Nory styleCode="Bold Medical ">Amylase Center </content>78 IU/L<content styleCode="Ital ics"> (30-110 IU/L)</content> Lipase 23-300 <content [facility] [Enzymatic styleCode="Bold Medical activity/vo ">Lipase Center lume] in </content>143 Serum or IU/L<content Plasma styleCode="Ital ics"> (23-300 IU/L)</content> ID Date Data Source [employer].[id number] 06/21/2019 05:53:00 PM [facility] -0500 Name Value Range Interpretation Description Data Sup porting Code Source(s) Document(s ) Troponin < 0.034 <content Saint I.cardiac styleCode="Bold Nory [Mass/volume ">Troponin I Medical ] in Serum </content>< Center or Plasma 0.012 NG/ML<content styleCode="Ital ics"> (< 0.034 NG/ML)</content > ID Date Data Source [employer].[id number] 06/21/2019 05:53:00 PM [facility] Name Value Range Interpretation Code Description Data Ayaka rce(s) Supporting Document(s ) UNK <content [place] styleCode="Bold" Medical Cente r >Blood Type </content>GROUP O (Reference Range: not available)
UNK NEGATIVE <content [facility] Nory styleCode="Bold" Medical Cente r >Antibody Screen </content>NEGATI VE <content styleCode="Itali cs"> (NEGATIVE )</content> UNK <content [facility] styleCode="Bold" Medical Cente r >RH Type </content>POSITI VE (Reference Range: not available)
ID Date Data Source [facility].[id number] 06/21/2019 05:53:00 PM EST [facility] Name Value Range Interpretation Description Data Sup porting Code Source(s) Document(s ) Sodium 137-145 <content Saint [Moles/volume] in styleCode="Bold"> Barry phs Serum or Plasma Sodium Medical </content>141 Center MEQ/L<content styleCode="Italic s"> (137-145 MEQ/L)</content> Chloride 98-107 <content [facility] [Moles/volume] in styleCode="Bold"> Barry phs Serum or Plasma Chloride Medical </content>104 Center MEQ/L<content styleCode="Italic s"> (98-107 MEQ/L)</content> Potassium 3.5-5.3 <content [facility] [Moles/volume] in styleCode="Bold"> Barry phs Serum or Plasma Potassium Medical </content>3.9 Center MEQ/L<content styleCode="Italic s"> (3.5-5.3 MEQ/L)</content> Carbon dioxide, 22-30 <content Saint total styleCode="Bold"> Nory [Moles/volume] in Carbon Dioxide Medical Serum or Plasma </content>27 Center MEQ/L<content styleCode="Italic s"> (22-30 MEQ/L)</content> Calcium 8.4-10. Above high <content [facility] [Mass/volume] in 2 normal styleCode="Bold"> Johann hs Serum or Plasma Calcium Medical </content>10.3 Center MG/DL H<content styleCode="Italic s"> (8.4-10.2 MG/DL)</content> UNK 9-20 <content Saint styleCode="Bold"> Nory BUN </content>18 Medical MG/DL<content Center styleCode="Italic s"> (9-20 MG/DL)</content> Glucose 74-106 Above high <content Saint [Mass/volume] in normal styleCode="Bold"> Ojhann hs Serum or Plasma Glucose Medical </content>111 Center MG/DL H<content styleCode="Italic s"> (74-106 MG/DL)</content> Creatinine 0.5-1.3 <content [facility] [Mass/volume] in styleCode="Bold"> Johann hs Serum or Plasma Creatinine Medical </content>0.9 Center MG/DL<content styleCode="Italic s"> (0.5-1.3 MG/DL)</content> Aspartate 17-59 <content [facility] aminotransferase styleCode="Bold"> Johann hs [Enzymatic Aspartate Medical activity/volume] Aminotransferase Center in Serum or Plasma (AST) </content>29 IU/L<content styleCode="Italic s"> (17-59 IU/L)</content> Alanine 7-50 <content [facility] aminotransferase styleCode="Bold"> Johann hs [Enzymatic Alanine Medical activity/volume] Aminotransferase Center in Serum or Plasma (ALT) </content>35 IU/L<content styleCode="Italic s"> (7-50 IU/L)</content> UNK > 60 <content [facility] styleCode="Bold"> Nory EGFR </content>95 Medical GFR<content Center styleCode="Italic s"> (> 60 GFR)</content> Alkaline 38-126 <content [facility] phosphatase styleCode="Bold"> Nory [Enzymatic Alkaline Medical activity/volume] Phosphatase (ALP) Cente r in Serum or Plasma </content>89 IU/L<content styleCode="Italic s"> (38-126 IU/L)</content> Albumin 3.5-5.0 <content [facility] [Mass/volume] in styleCode="Bold"> Johann hs Serum or Plasma Albumin Medical </content>4.8 Center G/DL<content styleCode="Italic s"> (3.5-5.0 G/DL)</content> Bilirubin.total 0.2-1.3 <content [facility] [Mass/volume] in styleCode="Bold"> Johann hs Serum or Plasma Bilirubin Total Medical </content>0.3 Center MG/DL<content styleCode="Italic s"> (0.2-1.3 MG/DL)</content> Procedure Social History Code Duration Value Status Description Data Source(s ) Smoking 03/06/2020 [facility], [place] [facility] DGEN (St 12:00:00 AM EDT [place] [facility] [place] non smoker drinks ) occasionally social occasionally drinking no social drinking smoking denied no smoking denied illicit drugs used illicit drugs use d Smoking 03/06/2020 Unknown if ever completed Unknown if ever MEDG EN (St 12:00:00 AM EDT smoked smoked [facility] [place] dicut, ) Smoking 11/29/2019 Denies Ever Smoked completed Denies Ever Smoke d [place] 02:37:00 PM EDT Medical C enter Smoking 11/29/2019 Denies Ever Smoked completed Denies Ever Smoke d [place] 02:17:00 PM EDT Medical C enter Smoking 11/29/2019 Denies Ever Smoked completed Denies Ever Smoke d [facility] 02:07:00 PM EDT Medical C enter Smoking 06/21/2019 Denies Ever Smoked completed Denies Ever Smoke d [facility] 07:00:00 PM EST Medical C enter Smoking 06/21/2019 Denies Ever Smoked completed Denies Ever Smoke d [facility] 04:26:00 PM EST Medical C enter Smoking 06/21/2019 Denies Ever Smoked completed Denies Ever Smoke d [facility] 04:25:00 PM EST Medical C enter Vital Signs ID Date Data Source UNK Name Value Range Interpretation Code Description Data Source(s) Body height 65 in 65 in [facility] ([facility] [place] , ) Body mass index 34.4 kg/m2 34.4 kg/m2 [facility] (S t (BMI) [Ratio] [facility] [place], ) Diastolic blood 100 mm[Hg] 100 mm[Hg] [facility] (S t pressure [facility] [place]) Systolic blood 170 mm[Hg] 170 mm[Hg] [facility] (St pressure [facility]) Body weight 207 lb 207 lb [facility] ([facility] [place]) Body weight 100.861579 100.508730 kg [facility] phs Measured kg [facility] Body temperature 37.709527 37.984672 [facility] Respiratory rate 20 /min 20 /min [facility] Oxygen saturation 97 % 97 % [facility] enid in [facility] by Pulse oximetry Heart rate 86 /min 86 /min [facility] Body height 164.289661 164.111992 cm [facility] Diastolic blood 112 mm[Hg] 112 mm[Hg] [facility] Systolic blood 197 mm[Hg] 197 mm[Hg] [facility] Body mass index 36.7 kg/m2 36.7 kg/m2 [facility] (BMI) [Ratio] [facility] Heart rate 72 /min 72 /min [facility] ([facility]) Respiratory rate 16 /min 16 /min [facility] ( [facility]) Body mass index 35.9 kg/m2 35.9 kg/m2 [facility] (S t (BMI) [facility]] [facility]) Diastolic blood 110 mm[Hg] 110 mm[Hg] [facility] [place] [place] Systolic blood 150 mm[Hg] 150 mm[Hg] [facility] ([facility]) Body weight 216 lb 216 lb [facility] ([facility]) Body height 65 in 65 in [facility] ([facility]) Heart rate 74 /min 74 /min [facility] ([facility]) Inhaled oxygen 97 % 97 % [facility] ([facility]) Body mass index 36.3 kg/m2 36.3 kg/m2 [facility] (S t (BMI) [Ratio] [facility]) Diastolic blood 100 mm[Hg] 100 mm[Hg] [facility] [place] [place] Systolic blood 160 mm[Hg] 160 mm[Hg] [facility] ([facility]) Body weight 218 lb 218 lb [facility] ([facility]) Body height 65 in 65 in [facility] ([facility]) Body temperature 37.031586 37.540314 [facility] Respiratory rate 18 /min 18 /min [facility] Oxygen saturation 97 % 97 % [facility] blood [facility] by Pulse oximetry Heart rate 80 /min 80 /min [facility] Diastolic blood 88 mm[Hg] 88 mm[Hg] [facility] Systolic blood 149 mm[Hg] 149 mm[Hg] [facility] pressure [facility] Body weight 100.002216 100.452412 kg [facility] Measured kg [facility] Center Body temperature 37.345405 37.553118 [facility] Respiratory rate 18 /min 18 /min [facility] Oxygen saturation 96 % 96 % [facility] enid in Arterial blood [facility] Center by Pulse oximetry Heart rate 84 /min 84 /min [facility] Diastolic blood 97 mm[Hg] 97 mm[Hg] [facility] pressure [facility] Center Systolic blood 153 mm[Hg] 153 mm[Hg] [facility] pressure [facility]
[2020-05-30 05:45] VITALS: PULSE 70; BMI 34.7
--- NOTE | 2020-05-30 06:07 | PDOC ---
Rapid Medical Evaluation Chief Complaint: Pain Time Seen by Provider: 05/30/20 06:05 Medical Evaluation: Allergies Allergy/AdvReac Type Severity Reaction Status Date / Time No Known Drug Allergies Allergy Verified 05/30/20 05:45 Vital Signs Temp Pulse Resp BP Pulse Ox 98.5 F 70 18 185/95 H 100 05/30/20 05:43 05/30/20 05:43 05/30/20 05:43 05/30/20 05:43 05/30/20 05:43 05/30/20 06:05 50 year old male c/o left sided neck pain radiating to left arm since yesterday. reports heaviness to left arm patient denies pain with movement. denies trauma injury,. 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 Pe: patient alert ox3, full rom to left arm A: left arm pain; P: EKG patient to the ER for further management of care. Discharge Disposition - Diagnosis Left arm pain, Neck pain on left side - Discharge Dispostion Condition at time of disposition: Fair - Referrals Referrals: Jossue Stinson MD [Primary Care Provider] - - Patient Instructions - Post Discharge Activity
[2020-05-30] MEDS ORDERED: ASPIRIN 81 MG CHEWABLE TABLETS PO ONE (06:35)
[2020-05-30] MEDS ORDERED: ASPIRIN 81 MG CHEWABLE TABLETS ONE (06:38)
--- NOTE | 2020-05-30 06:44 | PDOC ---
History of Present Illness - General Chief Complaint: Pain Stated Complaint: GENERALIZED L SIDED PAIN Time Seen by Provider: 05/30/20 06:05 History Source: Patient Exam Limitations: No Limitations - History of Present Illness Initial Comments: 50 yo M history HTN presents with L arm pain since yesterday. He states that his arm was hurting all day, then it started to radiate to his jaw and shoulder today. Denies SOB, f/c, leg swelling. No recent illness. No prior cardiac histo ry, no prior cardiac procedures. PSH: appendectomy, resection of benign abdominal tumor Past History - Medical History Allergies/Adverse Reactions: Allergies Allergy/AdvReac Type Severity Reaction Status Date / Time No Known Drug Allergies Allergy Verified 05/30/20 05:45 Home Medications: Ambulatory Orders Labetalol HCl [Normodyne -] 100 mg PO BID 12/05/17 Irbesartan 300 mg PO DAILY 07/19/19 Hydrochlorothiazide 25 mg PO DAILY 12/09/19 Anemia: No Asthma: No Cancer: No Cardiac Disorders: No CVA: No COPD: No CHF: No Dementia: No Diabetes: No GI Disorders: Yes (RECENTLY PASSED BLOOD IN STOOL) Disorders: Yes (BPH,KIDNEY STONES) HTN: Yes Hypercholesterolemia: No Liver Disease: No Seizures: No Thyroid Disease: No - Surgical History Abdominal Surgery: Yes (ABSCESS) Appendectomy: Yes Cardiac Surgery: No Cholecystectomy: No Lung Surgery: No Neurologic Surgery: Yes (LAMINECTOMY) Orthopedic Surgery: Yes (LAMINECTOMY?? BACK SURGERY IN [place]) - Immunization History Td Vaccination: Yes Immunization Up to Date: No - Psycho-Social/Smoking History Smoking Status: No Smoking History: Never smoked Have you smoked in the past 12 months: No Number of Cigarettes Smoked Daily: 0 Information on smoking cessation initiated: No - Substance Abuse Hx (Audit-C & DAST Scrn) How often the patient has a drink containing alcohol: Never Score: In Men: 4 or > Positive; In Women: 3 or > Positive: 0 Screen Result (Pos requires Nsg. Audit-10AR): Negative In the last yr the pt used illegal drug/Rx for NonMed reason: No Score: Yes response is considered Positive: 0 Screen Result (Positive result requires Nsg. DAST-10): Negative Review of Systems - Review of Systems Able to Perform ROS?: Yes Comments:: GENERAL/CONSTITUTIONAL: No fever or chills. No weakness. HEAD, EYES, EARS, NOSE AND THROAT: No change in vision. No ear pain or dischar ge. No sore throat. CARDIOVASCULAR: No chest pain or shortness of breath. RESPIRATORY: No cough, wheezing, or hemoptysis. GASTROINTESTINAL: No nausea, vomiting, diarrhea or constipation. GENITOURINARY: No dysuria, frequency, or change in urination. MUSCULOSKELETAL: +L arm pain radiating to the L shoulder and L jaw SKIN: No rash. NEUROLOGIC: No headache, vertigo, loss of consciousness, or change in strength/sensation. ENDOCRINE: No increased thirst. No abnormal weight change. HEMATOLOGIC/LYMPHATIC: No anemia, easy bleeding, or history of blood clots. ALLERGIC/IMMUNOLOGIC: No hives or skin allergy. *Physical Exam - Vital Signs Last Vital Signs Temp Pulse Resp BP Pulse Ox 98.5 F 70 18 185/95 H 100 05/30/20 05:43 05/30/20 05:43 05/30/20 05:43 05/30/20 05:43 05/30/20 05:43 - Physical Exam GENERAL: Awake, alert, and fully oriented, in no acute distress. Appears anxious HEAD: No signs of trauma EYES: PERRLA, EOMI, sclera anicteric, conjunctiva clear ENT: Auricles normal inspection, hearing grossly normal, nares patent, oropharynx clear without exudates. Moist mucosa NECK: Normal ROM, supple, no lymphadenopathy, JVD, or masses LUNGS: Breath sounds equal, clear to auscultation bilaterally. No wheezes, and no crackles HEART: Regular rate and rhythm, normal S1 and S2, no murmurs, rubs or gallops ABDOMEN: Soft, nontender, normoactive bowel sounds. No guarding, no rebound. No masses EXTREMITIES: Normal range of motion, no edema. No clubbing or cyanosis. No cords, erythema, or tenderness NEUROLOGICAL: Cranial nerves II through XII grossly intact. Normal speech, normal gait. Motor and sensation intact SKIN: Warm, dry, normal turgor, no rashes or lesions noted. Heart Score/ECG Review - ECG Impressions Comment:: EKG read 06:34- NSR 64 bpm, ST elevations noted to V2-V3 ED Treatment Course - LABORATORY CBC & Chemistry Diagram: 05/30/20 06:41 05/30/20 06:41 Medical Decision Making - Medical Decision Making 05/30/20 06:44 Late entry. Received EKG from [place] at 06:34, patient noted to have STEMI with elevations to V2 and V3. [facility] transfer center contacted immediately, arranging transport. Will give aspirin while awaiting callback from cardiology. Discharge - Discharge Information Problems reviewed: Yes Clinical Impression/Diagnosis: STEMI (ST elevation myocardial infarction) Qualifiers: Involved coronary artery: unspecified coronary artery Qualified Code(s): I21.3 - ST elevation (STEMI) myocardial infarction of unspecified site Condition: Guarded Disposition: TRANSFER ACUTE CARE/OTHER HOSP - Follow up/Referral Referrals: Jossue Stinson MD [Primary Care Provider] - - Patient Discharge Instructions - Post Discharge Activity - Transfer to Acute Care Facility Receiving Facility Name: [facility] Accepting Physician:: Dr. Mckeon
[2020-05-30 06:55] LABS: BASO % 1.1 % (0-2.0); EOS % 2.4 % (0-4.5); HEMATOCRIT 40.7 % (35.4-49); HEMOGLOBIN 14.1 GM/dL (11.7-16.9); LYMPH % 30.8 % (8-40); MCH 31.1 pg (25.7-33.7); MCHC 34.6 g/dl (32.0-35.9); MEAN CELL VOLUME 89.8 fl (80-96); MEAN PLT VOLUME 7.7 fl (7.5-11.1); MONO % 6.9 % (3.8-10.2); NEUT % 58.8 % (42.8-82.8); PLATELET COUNT 211 K/MM3 (134-434); RBC 4.53 M/mm3 (4.00-5.60); RDW 13.1 % (11.9-15.9); WHITE BLOOD COUNT 5.5 K/mm3 (4.0-10.0)
[2020-05-30 07:07] LABS: INR 1.06 (0.83-1.09); PROTHROMBIN TIME (PATIENT) 12.5 SEC (9.7-13.0)
[2020-05-30 07:09] VITALS: BP 163/102
[2020-05-30 07:10] LABS: ACTIVATED PTT 31.9 SECONDS (25.2-36.5)
[2020-05-30 07:13] VITALS: TEMP 98.6
[2020-05-30 07:30] LABS: ALBUMIN 3.9 g/dl (3.4-5.0); ALK PHOS 71 U/L (45-117); ANION GAP 6 MMOL/L (8-16); BILIRUBIN,TOTAL 0.5 mg/dL (0.2-1); BLOOD UREA NITROGEN 12.8 mg/dL (7-18); CHLORIDE 106 mmol/L (98-107); CO2 30 mmol/L (21-32); CREATININE 0.9 mg/dL (0.55-1.3); GLUCOSE,RANDOM 108 mg/dL (74-106); POTASSIUM 3.5 mmol/L (3.5-5.1); SGOT/AST 15 U/L (15-37); SGPT/ALT 24 U/L (13-61); SODIUM 141 mmol/L (136-145); TOT PROT 7.3 g/dl (6.4-8.2)
--- NOTE | 2020-05-30 10:03 | EKG ---
Test Reason : Blood Pressure : / mmHG Vent. Rate : 063 BPM Atrial Rate : 063 BPM P-R Int : 166 ms QRS Dur : 118 ms QT Int : 410 ms P-R-T Axes : 023 -25 043 degrees QTc Int : 419 ms NORMAL SINUS RHYTHM ANTEROSEPTAL INFARCT (CITED ON OR BEFORE 09-DEC-2019) ABNORMAL ECG WHEN COMPARED WITH ECG OF 09-DEC-2019 11:25, INCOMPLETE RIGHT BUNDLE BRANCH BLOCK IS NO LONGER PRESENT QUESTIONABLE CHANGE IN INITIAL FORCES OF SEPTAL LEADS Confirmed by MD Paramjit, Ang ([id number] on 05/30/2020 10:02:49 AM Referred By: Confirmed By:Ang Yusuf MD
== END 2020-05-30 07:10 | disposition short-term general hospital (02) ==
LOC: JER 05:28
DX: I21.3 ST elevation (STEMI) myocardial infarction of unspecified site (principal); M79.602 Pain in left arm
CPT/HCPCS: 36415; 80053; 82550; 82553; 83735; 84484; 85025; 85610; 85730; 93005; 93010; 99285-25

== ENCOUNTER 2022-02-05 16:50 | Observation (INO) | payer OTHER ==
[2022-02-05 17:12] VITALS: BMI 34.9
[2022-02-05] MEDS ORDERED: ACETAMINOPHEN 1000 MG/100 ML BAG IVPB ONE (19:18)
[2022-02-05] MEDS ORDERED: ASPIRIN 81 MG CHEWABLE TABLETS PO ONE (19:20)
[2022-02-05] MEDS ORDERED: ASPIRIN 81 MG CHEWABLE TABLETS ONE (19:24)
[2022-02-05] MEDS ORDERED: ACETAMINOPHEN INJECTION 100 ML IVPB ONE (19:24)
[2022-02-05 19:55] LABS: INR 1.1 (0.83-1.09); PROTHROMBIN TIME (PATIENT) 12.7 SEC (9.7-13.0)
[2022-02-05 19:56] LABS: BASO % 0.4 % (0-2.0); EOS % 1.2 % (0-4.5); HEMATOCRIT 38.8 % (35.4-49); HEMOGLOBIN 13.5 GM/dL (11.7-16.9); LYMPH % 21.9 % (8-40); MCH 30.6 pg (25.7-33.7); MCHC 34.8 g/dl (32.0-35.9); MEAN PLT VOLUME 7.5 fl (7.5-11.1); MONO % 4.3 % (3.8-10.2); NEUT % 72.2 % (42.8-82.8); PLATELET COUNT 202 10^3/uL (134-434); RBC 4.41 M/mm3 (4.00-5.60); RDW 13.7 % (11.9-15.9); WHITE BLOOD COUNT 9.1 K/mm3 (4.0-10.0)
[2022-02-05 20:14] LABS: BLOOD UREA NITROGEN 14.6 mg/dL (7-18); CALCIUM 9.2 mg/dL (8.5-10.1)
[2022-02-05 20:18] LABS: CREATININE 0.9 mg/dL (0.55-1.3)
[2022-02-05 20:19] LABS: BILIRUBIN,TOTAL 0.4 mg/dL (0.2-1); TOT PROT 7.3 g/dl (6.4-8.2)
[2022-02-06 07:53] LABS: BASO % 0.7 % (0-2.0); EOS % 2.3 % (0-4.5); HEMATOCRIT 36.9 % (35.4-49); HEMOGLOBIN 13.1 GM/dL (11.7-16.9); LYMPH % 29.2 % (8-40); MCH 31.2 pg (25.7-33.7); MCHC 35.5 g/dl (32.0-35.9); MEAN CELL VOLUME 87.9 fl (80-96); MEAN PLT VOLUME 7.6 fl (7.5-11.1); MONO % 5.6 % (3.8-10.2); NEUT % 62.2 % (42.8-82.8); PLATELET COUNT 200 10^3/uL (134-434); RDW 13.7 % (11.9-15.9)
[2022-02-06 08:18] LABS: ALBUMIN 3.5 g/dl (3.4-5.0); BLOOD UREA NITROGEN 12.3 mg/dL (7-18); CALCIUM 8.6 mg/dL (8.5-10.1)
[2022-02-06 08:21] LABS: CREATININE 0.7 mg/dL (0.55-1.3)
[2022-02-06 08:22] LABS: BILIRUBIN,TOTAL 0.7 mg/dL (0.2-1); TOT PROT 6.7 g/dl (6.4-8.2)
[2022-02-06] MEDS ORDERED: HYDROCHLOROTHIAZIDE 25 MG TABLET (FP) ONE (09:25)
[2022-02-06] MEDS ORDERED: ASPIRIN COATED 81 MG TABLET.EC ONE (09:25)
[2022-02-06] MEDS ORDERED: LOSARTAN POTASSIUM 50 MG TABLET ONE (09:25)
[2022-02-06] MEDS ORDERED: LABETALOL HCL 100 MG TABLET (FP) ONE (09:25)
[2022-02-06] MEDS ORDERED: HEPARIN NA (PORCINE) 5,000 UNITS/ML 1ML VIAL ONE (09:26)
[2022-02-06] MEDS: HEPARIN NA (PORCINE) 5,000 UNITS/ML 1ML VIAL SQ SCH ×2 (09:33→21:20)
[2022-02-06] MEDS: LABETALOL HCL 100 MG TABLET (FP) PO SCH ×2 (09:33→21:20)
[2022-02-06] MEDS: ASPIRIN COATED 81 MG TABLET.EC PO SCH (09:33)
[2022-02-06] MEDS: LOSARTAN POTASSIUM 50 MG TABLET PO SCH (09:33)
[2022-02-06] MEDS: HYDROCHLOROTHIAZIDE 25 MG TABLET (FP) PO SCH (09:33)
[2022-02-06] MEDS ORDERED: POTASSIUM CHLORIDE TABS 20 MEQ TABLET.ER (FP) PO ONE ×2 (15:26→15:34)
[2022-02-07 07:29] LABS: CALCIUM 8.8 mg/dL (8.5-10.1)
[2022-02-07 07:30] LABS: ALBUMIN 3.6 g/dl (3.4-5.0); BLOOD UREA NITROGEN 19.3 mg/dL (7-18)
[2022-02-07 07:33] LABS: CREATININE 0.8 mg/dL (0.55-1.3)
[2022-02-07 07:34] LABS: BILIRUBIN,TOTAL 0.5 mg/dL (0.2-1); TOT PROT 6.8 g/dl (6.4-8.2)
[2022-02-07] MEDS ORDERED: REGADENOSON 0.4 MG/5 ML PRE-FILLED SYRINGE IVPUSH ONE ×2 (08:43→09:00)
[2022-02-07] MEDS: LABETALOL HCL 100 MG TABLET (FP) PO SCH (12:20)
[2022-02-07] MEDS: HEPARIN NA (PORCINE) 5,000 UNITS/ML 1ML VIAL SQ SCH (12:20)
[2022-02-07] MEDS: ASPIRIN COATED 81 MG TABLET.EC PO SCH (12:21)
[2022-02-07] MEDS: LOSARTAN POTASSIUM 50 MG TABLET PO SCH (12:21)
[2022-02-07] MEDS: HYDROCHLOROTHIAZIDE 25 MG TABLET (FP) PO SCH (12:21)
[2022-02-07 13:57] VITALS: PULSE 59
[2022-02-07 18:23] VITALS: BP 156/100; TEMP 99
[2022-02-09] MEDS ORDERED: cloNIDine-TTS 0.2 MG/24 HOURS PATCH.TDWK TD SCH (10:00)
== END 2022-02-07 18:50 | disposition home or self-care (01) ==
LOC: JER 16:50 → UNDOADMOB 19:19 → JERBED 19:19 → INTOOBSV 23:29 → OBSVTOIN 23:29 → JERBED 02-06 14:26 → J4W 02-06 17:55
PROVIDERS: ADMIT Internal Medicine; ATTEND Internal Medicine
PROC: 3E033NZ Introduction of Analgesics, Hypnotics, Sedatives into Peripheral Vein, Percutaneous Approach (ICD-10-PCS; principal; 2022-02-06)
PROC: 3E023GC Introduction of Other Therapeutic Substance into Muscle, Percutaneous Approach (ICD-10-PCS; 2022-02-06)
PROC: 3E033GC Introduction of Other Therapeutic Substance into Peripheral Vein, Percutaneous Approach (ICD-10-PCS; 2022-02-06)
DX: R07.9 Chest pain, unspecified (principal); I25.10 Atherosclerotic heart disease of native coronary artery without angina pectoris; I11.9 Hypertensive heart disease without heart failure; E66.8 Other obesity; Z68.34 Body mass index [BMI] 34.0-34.9, adult; R94.31 Abnormal electrocardiogram [ECG] [EKG]; E66.9 Obesity, unspecified
CPT/HCPCS: 36415; 71045-TC-FY; 78452-TC; 80053; 83036; 84484; 85025; 85610; 93005; 93010; 93017; 93306-TC; 99285-25; A9502; C9803-CS; G0378; J1644; J2785; U0003; U0005

== ENCOUNTER 2022-04-01 16:34 | Observation (INO) | payer OTHER ==
[2022-04-01 21:19] LABS: BASO % 0.5 % (0-2.0); EOS % 0.9 % (0-4.5); HEMATOCRIT 40.6 % (35.4-49); HEMOGLOBIN 14.1 GM/dL (11.7-16.9); MCH 30.6 pg (25.7-33.7); MCHC 34.8 g/dl (32.0-35.9); MEAN CELL VOLUME 87.9 fl (80-96); MEAN PLT VOLUME 7.8 fl (7.5-11.1); MONO % 5.1 % (3.8-10.2); NEUT % 71.5 % (42.8-82.8); PLATELET COUNT 225 10^3/uL (134-434); RBC 4.61 M/mm3 (4.00-5.60); RDW 14.6 % (11.9-15.9); WHITE BLOOD COUNT 10.3 K/mm3 (4.0-10.0)
[2022-04-01 21:44] LABS: ALBUMIN 3.9 g/dl (3.4-5.0); BLOOD UREA NITROGEN 19.3 mg/dL (7-18); CALCIUM 8.9 mg/dL (8.5-10.1)
[2022-04-01 21:48] LABS: CREATININE 0.9 mg/dL (0.55-1.3)
[2022-04-01 21:49] LABS: BILIRUBIN,TOTAL 0.4 mg/dL (0.2-1); TOT PROT 7.5 g/dl (6.4-8.2)
[2022-04-01 21:52] LABS: N-TERMINAL BNP 6.8 pg/ml (5-125)
[2022-04-02 01:36] VITALS: BMI 34.0
[2022-04-02] MEDS: ACETAMINOPHEN 325 MG TABLET (FP) PO PRN ×3 (02:09→20:00)
[2022-04-02 03:05] LABS: EPI CELLS 2 /uL (0-25.1); HYALINE CASTS 0 /uL (0-3.1); PH,URINE 5.5 (5.0-8.0); URINE APPEARANCE Clear; URINE BACTERIA 1 /uL (0-1359); URINE BILIRUBIN Negative (NEGATIVE); URINE COLOR Yellow; URINE GLUCOSE (UA) Negative (NEGATIVE); URINE KETONE Negative (NEGATIVE); URINE LEUK ESTERASE Negative (NEGATIVE); URINE NITRITE Negative (NEGATIVE); URINE PROTEIN Negative (NEGATIVE); URINE RBC 3 /uL (0-23.9); URINE UROBILINOGEN 0.2 mg/dL (0.2-1.0); URINE WBC 2 /uL (0-25.8)
[2022-04-02 07:37] LABS: BASO % 0.2 % (0-2.0); EOS % 0.9 % (0-4.5); HEMATOCRIT 38.1 % (35.4-49); HEMOGLOBIN 13.4 GM/dL (11.7-16.9); LYMPH % 18.4 % (8-40); MCH 30.5 pg (25.7-33.7); MCHC 35.2 g/dl (32.0-35.9); MEAN CELL VOLUME 86.7 fl (80-96); MEAN PLT VOLUME 7.6 fl (7.5-11.1); MONO % 5.6 % (3.8-10.2); NEUT % 74.9 % (42.8-82.8); PLATELET COUNT 207 10^3/uL (134-434); RBC 4.39 M/mm3 (4.00-5.60); RDW 14.2 % (11.9-15.9); WHITE BLOOD COUNT 9.3 K/mm3 (4.0-10.0)
[2022-04-02 07:53] LABS: CALCIUM 8.8 mg/dL (8.5-10.1)
[2022-04-02 07:54] LABS: ALBUMIN 3.6 g/dl (3.4-5.0); BLOOD UREA NITROGEN 18.2 mg/dL (7-18)
[2022-04-02 07:57] LABS: CREATININE 0.8 mg/dL (0.55-1.3)
[2022-04-02 07:58] LABS: BILIRUBIN,TOTAL 0.8 mg/dL (0.2-1)
[2022-04-02 07:59] LABS: TOT PROT 6.8 g/dl (6.4-8.2)
[2022-04-02] MEDS: HYDROCHLOROTHIAZIDE 25 MG TABLET (FP) PO SCH (09:56)
[2022-04-02] MEDS: HEPARIN NA (PORCINE) 5,000 UNITS/ML 1ML VIAL SQ SCH ×2 (09:56→21:44)
[2022-04-02] MEDS: PANTOPRAZOLE 40 MG TABLET PO SCH (16:36)
[2022-04-02] MEDS: POLYETHYLENE GLYCOL (HEALTHYLAX) 3350 17 GM PACKET PO SCH (21:43)
[2022-04-03 07:00] LABS: BASO % 0.5 % (0-2.0); EOS % 1.2 % (0-4.5); HEMATOCRIT 37.7 % (35.4-49); HEMOGLOBIN 13.3 GM/dL (11.7-16.9); LYMPH % 23.6 % (8-40); MCH 30.7 pg (25.7-33.7); MCHC 35.3 g/dl (32.0-35.9); MEAN CELL VOLUME 87.2 fl (80-96); MEAN PLT VOLUME 7.6 fl (7.5-11.1); MONO % 5.6 % (3.8-10.2); NEUT % 69.1 % (42.8-82.8); PLATELET COUNT 200 10^3/uL (134-434); RBC 4.32 M/mm3 (4.00-5.60); RDW 14.1 % (11.9-15.9); WHITE BLOOD COUNT 8.1 K/mm3 (4.0-10.0)
[2022-04-03 07:28] LABS: ALBUMIN 3.6 g/dl (3.4-5.0); BLOOD UREA NITROGEN 15.5 mg/dL (7-18); CALCIUM 8.9 mg/dL (8.5-10.1)
[2022-04-03 07:31] LABS: CREATININE 0.9 mg/dL (0.55-1.3)
[2022-04-03 07:33] LABS: BILIRUBIN,TOTAL 0.9 mg/dL (0.2-1); TOT PROT 6.9 g/dl (6.4-8.2)
[2022-04-03] MEDS ORDERED: MAGNESIUM CITRATE 300 ML BOTTLE PO ONE ×2 (09:53→13:45)
[2022-04-03] MEDS ORDERED: PANTOPRAZOLE SODIUM 40 MG in SODIUM CHLORIDE 100 ML IVPUSH SCH (10:00)
[2022-04-03] MEDS: HYDROCHLOROTHIAZIDE 25 MG TABLET (FP) PO SCH (10:53)
[2022-04-03] MEDS: PANTOPRAZOLE 40 MG TABLET PO SCH (10:53)
[2022-04-03] MEDS: HEPARIN NA (PORCINE) 5,000 UNITS/ML 1ML VIAL SQ SCH (10:53)
[2022-04-03] MEDS: POLYETHYLENE GLYCOL (HEALTHYLAX) 3350 17 GM PACKET PO SCH (10:55)
[2022-04-03] MEDS: ACETAMINOPHEN 325 MG TABLET (FP) PO PRN (10:57)
[2022-04-03 14:35] VITALS: BP 143/91; PULSE 63; RESP 20; TEMP 98.8
== END 2022-04-03 17:01 | disposition home or self-care (01) ==
LOC: JER 16:34 → UNDOADMOB 23:18 → JERBED 23:18 → OBSVTOIN 04-02 01:27 → INTOOBSV 04-02 01:27 → JERBED 04-02 01:43 → J4W 04-02 01:43
PROVIDERS: ADMIT Internal Medicine; ATTEND Internal Medicine
PROC: 3E023GC Introduction of Other Therapeutic Substance into Muscle, Percutaneous Approach (ICD-10-PCS; principal; 2022-04-02)
DX: R07.9 Chest pain, unspecified (principal); R00.2 Palpitations; I25.10 Atherosclerotic heart disease of native coronary artery without angina pectoris; R10.9 Unspecified abdominal pain; Z86.16 Personal history of COVID-19; E66.8 Other obesity; Z68.34 Body mass index [BMI] 34.0-34.9, adult; I11.9 Hypertensive heart disease without heart failure
CPT/HCPCS: 36415; 71046-TC-FY; 71275-TC; 74177-TC; 76856-TC; 80053; 81003; 83880; 84153; 84484; 85025; 85379; 87086; 93005; 93010; 93306-TC; 96372; 99285-25; C9803-CS; G0378; J1644; Q9967; U0003; U0005

== ENCOUNTER 2022-09-12 15:24 | Emergency (ER) | payer OTHER ==
[2022-09-12 15:47] VITALS: TEMP 98.1; BMI 33.3
[2022-09-12] MEDS ORDERED: METHOCARBAMOL 500 MG TABLET PO ONE (17:37)
[2022-09-12] MEDS ORDERED: LIDOCAINE 5% TOPICAL PATCH TP ONE (17:39)
[2022-09-12 17:45] LABS: BASO % 0.6 % (0-2.0); EOS % 1.4 % (0-4.5); HEMATOCRIT 41.9 % (35.4-49); LYMPH % 26.5 % (8-40); MCH 30.4 pg (25.7-33.7); MCHC 33.5 g/dl (32.0-35.9); MEAN CELL VOLUME 90.9 fl (80-96); MEAN PLT VOLUME 8.1 fl (7.5-11.1); MONO % 7.1 % (3.8-10.2); NEUT % 64.4 % (42.8-82.8); PLATELET COUNT 239 10^3/uL (134-434); RBC 4.61 M/mm3 (4.00-5.60); WHITE BLOOD COUNT 6.3 K/mm3 (4.0-10.0)
[2022-09-12 18:04] LABS: CALCIUM 9.5 mg/dL (8.5-10.1)
[2022-09-12 18:05] LABS: ALBUMIN 4.1 g/dl (3.4-5.0); BLOOD UREA NITROGEN 18.7 mg/dL (7-18)
[2022-09-12 18:08] LABS: CREATININE 0.9 mg/dL (0.55-1.3)
[2022-09-12] MEDS ORDERED: METHOCARBAMOL 500 MG TABLET ONE (18:08)
[2022-09-12 18:09] LABS: BILIRUBIN,TOTAL 0.4 mg/dL (0.2-1); TOT PROT 7.5 g/dl (6.4-8.2)
[2022-09-12] MEDS ORDERED: LIDOCAINE 5% TOPICAL PATCH ONE (18:09)
[2022-09-12] MEDS ORDERED: KETOROLAC TROMETHAMINE 15 MG/ML VIAL IVPUSH ONE (20:15)
[2022-09-12] MEDS ORDERED: KETOROLAC TROMETHAMINE 15 MG/ML VIAL ONE (20:23)
[2022-09-12] MEDS ORDERED: LIDOCAINE PATCH REMOVAL MC ONE (22:00)
[2022-09-12 22:36] VITALS: BP 184/111; PULSE 62; RESP 16
== END 2022-09-12 22:35 | disposition home or self-care (01) ==
LOC: JER 15:24
PROC: 3E033GC Introduction of Other Therapeutic Substance into Peripheral Vein, Percutaneous Approach (ICD-10-PCS; principal; 2022-09-12)
DX: M25.512 Pain in left shoulder (principal)
CPT/HCPCS: 36415; 71045-TC-FY; 71275-TC; 73030-TC-LT-FY; 74174-TC; 80053; 84484; 85025; 85379; 93005; 93010; 99285-25; Q9967

== ENCOUNTER 2023-04-09 15:50 | Emergency (ER) | payer OTHER ==
[2023-04-09 16:02] VITALS: RESP 18; TEMP 98; BMI 35.7
[2023-04-09] MEDS ORDERED: METOCLOPRAMIDE HCL INJECTION 10 MG/2 ML VIAL IVPUSH ONE (16:51)
[2023-04-09] MEDS ORDERED: KETOROLAC TROMETHAMINE 30 MG/1 ML VIAL IVPUSH ONE (16:51)
[2023-04-09] MEDS ORDERED: SODIUM CHLORIDE 1,000 ML IV STA (16:51)
[2023-04-09] MEDS ORDERED: KETOROLAC TROMETHAMINE 60 MG/2 ML VIAL ONE (16:53)
[2023-04-09] MEDS ORDERED: diphenhydrAMINE HCL 25 MG CAPSULE (FP) PO ONE (16:53)
[2023-04-09] MEDS ORDERED: METOCLOPRAMIDE HCL INJECTION 10 MG/2 ML VIAL ONE (16:53)
[2023-04-09 17:29] LABS: BASO % 0.7 % (0-2.0); EOS % 1.9 % (0-4.5); HEMATOCRIT 41.1 % (35.4-49); LYMPH % 32.6 % (8-40); MCH 30.5 pg (25.7-33.7); MCHC 33.9 g/dl (32.0-35.9); MEAN CELL VOLUME 89.9 fl (80-96); MEAN PLT VOLUME 8.2 fl (7.5-11.1); MONO % 5.1 % (3.8-10.2); NEUT % 59.7 % (42.8-82.8); PLATELET COUNT 219 10^3/uL (134-434); RBC 4.58 M/mm3 (4.00-5.60); RDW 13.8 % (11.9-15.9); WHITE BLOOD COUNT 6.2 K/mm3 (4.0-10.0)
[2023-04-09 17:39] LABS: INR 1.05 (0.83-1.09); PROTHROMBIN TIME (PATIENT) 12.2 SEC (9.7-13.0)
[2023-04-09 17:42] LABS: ACTIVATED PTT 29.8 SECONDS (25.2-36.5)
[2023-04-09 17:49] LABS: POTASSIUM 3.9 mmol/L (3.5-5.1)
[2023-04-09 17:51] LABS: BLOOD UREA NITROGEN 12.4 mg/dL (7-18); CALCIUM 9.3 mg/dL (8.5-10.1); MAGNESIUM 1.9 mg/dL (1.8-2.4)
[2023-04-09 17:54] LABS: CREATININE 1.1 mg/dL (0.55-1.3)
[2023-04-09 17:56] LABS: BILIRUBIN,TOTAL 0.4 mg/dL (0.2-1); TOT PROT 7.6 g/dl (6.4-8.2)
[2023-04-09 18:53] VITALS: BP 161/93; PULSE 61
[2023-04-09] MEDS ORDERED: ACETAMINOPHEN 1000 MG/100 ML BAG IVPB ONE (19:00)
[2023-04-09] MEDS ORDERED: ACETAMINOPHEN INJECTION 100 ML IVPB ONE (19:02)
== END 2023-04-09 19:21 | disposition home or self-care (01) ==
LOC: JER 15:50
PROC: 3E033NZ Introduction of Analgesics, Hypnotics, Sedatives into Peripheral Vein, Percutaneous Approach (ICD-10-PCS; principal; 2023-04-09)
PROC: 3E0333Z Introduction of Anti-inflammatory into Peripheral Vein, Percutaneous Approach (ICD-10-PCS; 2023-04-09)
PROC: 3E033GC Introduction of Other Therapeutic Substance into Peripheral Vein, Percutaneous Approach (ICD-10-PCS; 2023-04-09)
PROC: 3E033GC Introduction of Other Therapeutic Substance into Peripheral Vein, Percutaneous Approach (ICD-10-PCS; 2023-04-09)
PROC: 3E0337Z Introduction of Electrolytic and Water Balance Substance into Peripheral Vein, Percutaneous Approach (ICD-10-PCS; 2023-04-09)
DX: R42 Dizziness and giddiness (principal); G44.89 Other headache syndrome; M54.2 Cervicalgia; Z20.822 Contact with and (suspected) exposure to COVID-19
CPT/HCPCS: 0241U-QW; 36415; 70496-TC; 70498-TC; 80053; 83735; 85025; 85610; 85730; 99285-25; Q9967

== ENCOUNTER 2023-11-06 16:05 | Emergency (ER) | payer OTHER ==
[2023-11-06 16:12] VITALS: TEMP 98.2; BMI 33.3
[2023-11-06] MEDS ORDERED: ACETAMINOPHEN INJECTION 100 ML IVPB ONE (17:40)
[2023-11-06] MEDS ORDERED: ONDANSETRON 4 MG/2 ML VIAL ONE (17:40)
[2023-11-06] MEDS: ONDANSETRON 4 MG/2 ML VIAL IVPB ONE (17:46)
[2023-11-06] MEDS: ACETAMINOPHEN 1000 MG/100 ML BAG IVPB ONE (17:46)
[2023-11-06 17:48] LABS: BASO % 0.9 % (0-2.0); EOS % 1.7 % (0-4.5); HEMATOCRIT 38.4 % (35.4-49); HEMOGLOBIN 13.3 GM/dL (11.7-16.9); LYMPH % 32.6 % (8-40); MCH 31.4 pg (25.7-33.7); MCHC 34.7 g/dl (32.0-35.9); MEAN CELL VOLUME 90.4 fl (80-96); MEAN PLT VOLUME 8.1 fl (7.5-11.1); MONO % 5.6 % (3.8-10.2); NEUT % 59.2 % (42.8-82.8); PLATELET COUNT 203 10^3/uL (134-434); RBC 4.25 M/mm3 (4.00-5.60)
[2023-11-06 18:08] LABS: POTASSIUM 4.4 mmol/L (3.5-5.1)
[2023-11-06 18:11] LABS: CALCIUM 9.5 mg/dL (8.5-10.1)
[2023-11-06 18:12] LABS: ALBUMIN 4.2 g/dl (3.4-5.0)
[2023-11-06 18:15] LABS: CREATININE 1.1 mg/dL (0.55-1.3)
[2023-11-06 18:17] LABS: BILIRUBIN,TOTAL 0.5 mg/dL (0.2-1); TOT PROT 7.3 g/dl (6.4-8.2)
[2023-11-06 21:32] VITALS: BP 164/90; PULSE 66; RESP 18
== END 2023-11-06 21:59 | disposition home or self-care (01) ==
LOC: JER 16:05
PROC: 3E030NZ Introduction of Analgesics, Hypnotics, Sedatives into Peripheral Vein, Open Approach (ICD-10-PCS; principal; 2023-11-06)
PROC: 3E030NZ Introduction of Analgesics, Hypnotics, Sedatives into Peripheral Vein, Open Approach (ICD-10-PCS; 2023-11-06)
PROC: 3E030GC Introduction of Other Therapeutic Substance into Peripheral Vein, Open Approach (ICD-10-PCS; 2023-11-06)
DX: R10.32 Left lower quadrant pain (principal); R11.0 Nausea
CPT/HCPCS: 36415; 74177-TC; 80053; 83690; 85025; 99285-25; J0131; Q9967

== ENCOUNTER 2024-04-10 12:26 | Emergency (ER) | payer OTHER ==
[2024-04-10 12:36] VITALS: BMI 33.3
[2024-04-10] MEDS ORDERED: ACETAMINOPHEN INJECTION 100 ML ONE (13:20)
[2024-04-10] MEDS ORDERED: METOCLOPRAMIDE HCL INJECTION 10 MG/2 ML VIAL ONE (13:20)
[2024-04-10 13:25] LABS: BASO % 0.6 % (0-2.0); EOS % 1.3 % (0-4.5); HEMATOCRIT 41.7 % (35.4-49); HEMOGLOBIN 14.3 GM/dL (11.7-16.9); LYMPH % 23.1 % (8-40); MCH 30.9 pg (25.7-33.7); MCHC 34.4 g/dl (32.0-35.9); MEAN CELL VOLUME 89.7 fl (80-96); MEAN PLT VOLUME 7.2 fl (7.5-11.1); MONO % 6.5 % (3.8-10.2); NEUT % 68.5 % (42.8-82.8); PLATELET COUNT 202 10^3/uL (134-434); RBC 4.64 M/mm3 (4.00-5.60); RDW 13.8 % (11.9-15.9); WHITE BLOOD COUNT 6.4 K/mm3 (4.0-10.0)
[2024-04-10 13:31] LABS: INR 0.97 (0.83-1.09)
[2024-04-10] MEDS: ACETAMINOPHEN 1000 MG/100 ML BAG IVPB ONE (13:32)
[2024-04-10] MEDS: SODIUM CHLORIDE 0.9% 500 ML INFUS.BAG IV ONE (13:32)
[2024-04-10] MEDS: METOCLOPRAMIDE HCL INJECTION 10 MG/2 ML VIAL IVPUSH ONE (13:32)
[2024-04-10 13:34] LABS: ACTIVATED PTT 32.5 SECONDS (25.2-36.5)
[2024-04-10 13:46] LABS: CALCIUM 9.3 mg/dL (8.5-10.1)
[2024-04-10 13:47] LABS: ALBUMIN 3.9 g/dl (3.4-5.0)
[2024-04-10 13:50] LABS: CREATININE 0.8 mg/dL (0.55-1.3)
[2024-04-10 13:51] LABS: BILIRUBIN,TOTAL 0.6 mg/dL (0.2-1)
[2024-04-10 13:52] LABS: TOT PROT 7.3 g/dl (6.4-8.2)
[2024-04-10 14:07] LABS: URINE APPEARANCE CLEAR; URINE BILIRUBIN NEGATIVE (NEGATIVE); URINE COLOR YELLOW; URINE GLUCOSE (UA) NEGATIVE (NEGATIVE); URINE KETONE NEGATIVE (NEGATIVE); URINE LEUK ESTERASE NEGATIVE (NEGATIVE); URINE NITRITE NEGATIVE (NEGATIVE); URINE PROTEIN NEGATIVE (NEGATIVE); URINE UROBILINOGEN 0.2 mg/dL (0.2-1.0)
[2024-04-10] MEDS ORDERED: LIDOCAINE 4% PATCH TP ONE (15:27)
[2024-04-10] MEDS ORDERED: MECLIZINE HCL 25 MG TABLET (FP) ONE (15:27)
[2024-04-10] MEDS ORDERED: KETOROLAC TROMETHAMINE 15 MG/ML VIAL ONE (15:28)
[2024-04-10] MEDS: KETOROLAC TROMETHAMINE 15 MG/ML VIAL IVPUSH ONE (15:34)
[2024-04-10] MEDS: MECLIZINE HCL 25 MG TABLET (FP) PO ONE (15:34)
[2024-04-10] MEDS: LIDOCAINE 4% PATCH TP ONE (15:34)
[2024-04-10 16:30] VITALS: BP 138/87; PULSE 61; RESP 18; TEMP 98.6
[2024-04-10] MEDS ORDERED: LIDOCAINE PATCH REMOVAL MC SCH (22:00)
== END 2024-04-10 17:00 | disposition home or self-care (01) ==
LOC: JER 12:26
PROC: 3E033NZ Introduction of Analgesics, Hypnotics, Sedatives into Peripheral Vein, Percutaneous Approach (ICD-10-PCS; principal; 2024-04-10)
PROC: 3E0333Z Introduction of Anti-inflammatory into Peripheral Vein, Percutaneous Approach (ICD-10-PCS; 2024-04-10)
PROC: 3E033GC Introduction of Other Therapeutic Substance into Peripheral Vein, Percutaneous Approach (ICD-10-PCS; 2024-04-10)
DX: R51.9 Headache, unspecified (principal); R42 Dizziness and giddiness; H53.8 Other visual disturbances; R07.9 Chest pain, unspecified
CPT/HCPCS: 36415; 70450-TC; 71045-TC-FY; 80053; 81003; 84484; 85025; 85610; 85730; 87086; 93005; 93010; 99285-25; J0131